=== PATIENT | female | born 1995 | race Caucasian/White ===

== ENCOUNTER 2018-08-26 13:44 | Emergency (ER) | payer MEDICAID ==
[~2018-08-26] VITALS: Ht 154.9 cm; Wt 77.1 kg
[2018-08-26 14:04] VITALS: Ht 154.9 cm; Wt 77.1 kg
[2018-08-26 15:40] LABS: BASOPHIL % 0.7 % (0-2); PLATELET COUNT 235 x10^3mcL (130-400); RED CELL DISTRIBUTION WIDTH 14.2 % (11.5-14.5)
[2018-08-26 15:41] LABS: UA SPECIFIC GRAVITY 1.015 (1.005-1.035); microscopic required? YES; urine erythrocyte 2+ (NEGATIVE)
[2018-08-26 17:49] VITALS: BP 120/66
== END 2018-08-26 17:49 | disposition home or self-care (01) ==
LOC: ED 13:44
PROVIDERS: Specialist
DX: O20.0 Threatened abortion (principal); Z98.890 Other specified postprocedural states
CPT/HCPCS: 36415; 87491; 87591